=== PATIENT | male | born 1960 | race Hispanic/Latino ===

== ENCOUNTER → 2018-12-28 | Outpatient (CLI) | payer BC ==
--- NOTE | 2018-12-28 16:53 | Diagnostic Imaging Report ---
EXAM: Lumbar spine radiographs-3 views INDICATION: Low back pain. COMPARISON: None FINDINGS: BONES: The alignment is within normal limits. No acute displaced fractures. Vertebral body heights are preserved. DISCS: Mild degenerative disc changes at L5-S1. JOINTS: Mild facet degenerative changes at L5-S1. SOFT TISSUES: Unremarkable IMPRESSION: No acute lumbar spine radiographic findings. Mild degenerative disc and facet degenerative changes at L5-S1. Signed by: Dr. Joan Torres MD on 12/28/2018 4:49 PM
== END ==
LOC: RAD 15:46
PROVIDERS: ATTEND Family Medicine
DX: M54.5 Low back pain (principal)
CPT/HCPCS: 72100

== ENCOUNTER → 2019-01-14 | Outpatient (CLI) | payer BC ==
--- NOTE | 2019-01-14 17:10 | Diagnostic Imaging Report ---
Exam: Lumbar spine MRI without IV contrast History: Low back pain with bilateral tingling in feet. Comparison studies: Under spine x-ray 12/28/2018. Technique: Sagittal and axial T2 , sagittal T1 and IR, axial spin density oblique. Intravenous contrast: None Findings: Number of lumbar vertebral bodies: 5. Alignment: Normal lordosis. No scoliosis. Soft tissues: No T2 hyperintense inflammatory changes. Paraspinal muscles: No signal abnormalities. Well-preserved. No atrophic changes Lower thoracic cord: Normal in signal and morphology. The tip of the conus is at L1. Cauda equina: No masses. No arachnoiditis. Vertebrae: No compression fractures or infection. Incidental benign T1 hyperintense T11 vertebral body. Degenerative changes: L1-L2: Mildly degenerated disc with loss of disc height and loss of T2 disc signal. A 9 mm TV x 6 mm AP left central disc protrusion abuts but does not compress the left L2 nerve roots and results in only mild canal stenosis. Patent foramina. L2-L3: Disc height and disc signal are maintained. Patent canal and foramina. L3-L4: Disc height and disc signal are maintained. Minimal fatty replaced marrow endplate changes along the inferior L3 endplate. Symmetric bulging disc and mildly thickened ligamentum flavum result in minimal canal stenosis. Patent foramina. L4-L5: Mildly degenerated disc with loss of T2 disc signal. Asymmetric left disc bulge with small central disc protrusion and thickened ligamentum flavum result in mild canal stenosis, mild narrowing of the subarticular recesses and mild bilateral foraminal stenosis. L5-S1: Mild facet arthrosis. Patent canal and foramina. Included sacroiliac joints: No joint effusion or marrow edema. Incidental findings: Bilateral renal cysts, largest in the inferior pole of the right kidney measures 1.0 cm, largest in the superior pole of the left kidney measures 2.0 cm. IMPRESSION: Degenerative changes with mildly degenerated disks with disc protrusions and mild canal stenosis at L1-L2 and at L4-L5 and mild foraminal stenosis on the left at L4-L5. Signed by: Dr. Rikki Kemp M.D. on 01/14/2019 5:06 PM
== END ==
LOC: MRI 11:01
PROVIDERS: ATTEND Family Medicine
DX: M54.5 Low back pain (principal)
CPT/HCPCS: 72148

== ENCOUNTER → 2019-10-07 | Day surgery (SDC) | payer BC ==
[~2019-10-07] MED LIST: FENTANYL CITRATE/PF 100MCG/2 ML INJ ONE; LIDOCAINE HCL 2% LOCAL INJ 5 ML SDV VIAL INJ ONE; LISINOPRIL2.5 MG PO; MIDAZOLAM HCL 2 MG/2 ML VIAL ONE; PRAVASTATIN SOD10 MG PO; PROPOFOL IV EMULSION 10 MG/ML 20 ML VIAL ONE; SYNJARDY 12.5-1 EACH PO
--- OUTSIDE RECORDS SUMMARY | 2019-10-07 07:50 | XMS REPORT ---
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 Allergies, Adverse Reactions, Alerts This patient has no known allergies or adverse reactions. Medications This patient has no known medications. Results Test Description Test Time Test Comments Text Results Atomic Results Result Comments MRI SPINE LUMBAR WO 2019-01-14 16:51:00 [place] [address] Patient Name: CRISTINE BRADFORD MR #: [id number] : 1960 Age/Sex: 58/M Req #: [id number] [facility] Physician: Ordered by: PILLO QUIÑONES MD Report #: [id number] Location: MRI Room/Bed: Procedure: [id number] MRI/MRI SPINE LUMBAR WO Exam Date: Exam Time: REPORT STATUS: Signed Exam: Lumbar spine MRI without IV contrast History: Low back pain with bilateral tingling in feet. Comparison studies: Under spine x-ray 12/28/2018. Technique: Sagittal and axial T2 , sagittal T1 and IR, axial spin density oblique. Intravenous contrast: None Findings: Number of lumbar vertebral bodies: 5. Alignment: Normal lordosis. No scoliosis. Soft tissues: No T2 hyperintense inflammatory changes. Paraspinal muscles: No signal abnormalities. Well-preserved. No atrophic changes Lower thoracic cord: Normal in signal and morphology. The tip of the conus is at L1. Cauda equina: No masses. No arachnoiditis. Vertebrae: No compression fractures or infection. Incidental benign T1 hyperintense T11 vertebral body. Degenerative changes: L1-L2: Mildly degenerated disc with loss of disc height and loss of T2 disc signal. A 9 mm TV x 6 mm AP left central disc protrusion abuts but does not compress the left L2 nerve roots and results in only mild canal stenosis. Patent foramina. L2-L3: Disc height and disc signal are maintained. Patent canal and foramina. L3-L4: Disc height and disc signal are maintained. Minimal fatty replaced marrow endplate changes along the inferior L3 endplate. Symmetric bulging disc and mildly thickened ligamentum flavum result in minimal canal stenosis. Patent foramina. L4- L5: Mildly degenerated disc with loss of T2 disc signal. Asymmetric left disc bulge with small central disc protrusion and thickened ligamentum flavum result in mild canal stenosis, mild narrowing of the subarticular recesses and mild bilateral foraminal stenosis. L5-S1: Mild facet arthrosis. Patent canal and foramina. Included sacroiliac joints: No joint effusion or marrow edema. Incidental findings: Bilateral renal cysts, largest in the inferior pole of the right kidney measures 1.0 cm, largest in the superior pole of the left kidney measures 2.0 cm. IMPRESSION: Degenerative changes with mildly degenerated disks with disc protrusions and mild canal stenosis at L1-L2 and at L4-L5 and mild foraminal stenosis on the left at L4-L5. Signed by: Dr. Lexy Kemp M.D. on 01/14/2019 5:06 PM Dictated By: LEXY KEMP MD 05 Transcribed By: OSMAR on 01/14/191705 COPY TO: PILLO QUIÑONES MD SP LUMBAR AP LATERAL 2-3VWS 2018-12-28 16:29:00 [place] [address] Patient Name: CRISTINE BRADFORD MR #: [id number] : 1960 Age/Sex: 58/M Req #: [id number] Physician: Ordered by: PILLO QUIÑONES MD Report #: [id number] Location: [facility] Room/Bed: Procedure: [id number] DX/SP LUMBAR AP LATERAL 2-3VWS Exam Date: 12/28/18 Exam Time: 1600 REPORT STATUS: Signed EXAM: Lumbar spine radiographs-3 views INDICATION: Low back pain. COMPARISON: None FINDINGS: BONES: The alignment is within normal limits. No acute displaced fractures. Vertebral body heights are preserved. DISCS: Mild degenerative disc changes at L5- S1. JOINTS: Mild facet degenerative changes at L5-S1. SOFT TISSUES: Unremarkable IMPRESSION: No acute lumbar spine radiographic findings. Mild degenerative disc and facet degenerative changes at L5-S1. Signed by: Dr. Zane Blackmon MD on 12/28/2018 4:49 PM Dictated By: ZANE BLACKMON MD 48 Transcribed By: OSMAR on 12/28/181648 COPY TO: PILLO QUIÑONES MD
[2019-10-07 10:03] LABS: BASOPHILS % 0.5 % (0.0-1.0); HEMATOCRIT 48.5 % (38.2-49.6); HEMOGLOBIN 17.3 g/dL (14.0-18.0); LYMPHOCYTES # (AUTO) 1.3 (1.0-3.2); LYMPHOCYTES % 33.4 % (18.0-39.1); MEAN CORPUSCULAR HEMOGLOBIN 31.5 pg (28-32); MEAN CORPUSCULAR HGB CONC 35.7 g/dL (31-35); MEAN CORPUSCULAR VOLUME 88.2 fL (81-99); MONOCYTES # (AUTO) 0.4 (0.2-0.8); MONOCYTES % 10.8 % (4.4-11.3); NEUTROPHILS # (AUTO) 2.1 (2.1-6.9); PLATELET COUNT 177 x10e3/uL (140-360); RED CELL DISTRIBUTION WIDTH 13.1 % (11.7-14.4)
[2019-10-07 10:15] LABS: ANION GAP 13.9 mmol/L (8-16); BLOOD UREA NITROGEN 14 mg/dL (7-26); BUN/CREATININE RATIO 17 (6-25); CALCIUM 9.5 mg/dL (8.4-10.2); CARBON DIOXIDE 26 mmol/L (22-29); CHLORIDE 106 mmol/L (98-107); CREATININE, SERUM 0.82 mg/dL (0.72-1.25); EST GLOMERULAR FILTRATION RATE > 60 ML/MIN (60-); GLUCOSE 96 mg/dL (74-118); POTASSIUM 3.9 mmol/L (3.5-5.1); SODIUM 142 mmol/L (136-145)
[2019-10-07 14:55] VITALS: BP 133/83
--- NOTE | 2019-11-23 18:40 | Operative Report ---
DATE OF PROCEDURE: 10/07/2019 SURGEON: Viktor Stanton MD PREOPERATIVE DIAGNOSES: Abdominal pain and rectal bleeding. POSTOPERATIVE DIAGNOSES: Severe gastritis and sigmoid colon polyp. OPERATIONS PERFORMED: Gastroduodenoscopy with biopsies and colonoscopy with snare polypectomy. ANESTHESIA: MAC. COMPLICATIONS: None. ESTIMATED BLOOD LOSS: Minimal. DESCRIPTION OF PROCEDURE: With the patient lying in bed in the lateral position under good IV sedation, the flexible Olympus gastroscope was introduced into the back of the throat, and slowly and carefully advanced. The esophagus was found to be within normal limits. The esophagogastric junction was then entered and immediately a very diffuse punctate hemorrhagic gastritis consistent with Helicobacter was identified. These encompass the whole stomach was worse in the more distal stomach. No definite ulcerations were identified. Multiple biopsies were taken. The pylorus was then entered and the duodenum was inspected. The duodenum also shows some signs of duodenitis, but not as severe. The gastroscope was then slowly and carefully removed, again the previously described findings. The flexible Olympus colonoscope was introduced up the rectum and all the way up the sigmoid colon, descending colon, transverse colon, all way down into the cecal pouch. The positive findings were to the sigmoid colon, where the large polypoid pedunculated polyp was identified. The rest of the colonoscopy was otherwise within normal limits. A polypectomy was then performed with the hot snare and the entire polyp was removed and sent for pathological examination. Hemostasis was ascertained. The procedure was completed and the patient tolerated both procedures well and returned to the recovery room in stable condition. MD JOE Lugo/MODL /[id number]
== END | disposition home or self-care (01) ==
LOC: OR 07:47
PROVIDERS: ATTEND Surgery
DX: K29.50 Unspecified chronic gastritis without bleeding (principal); D12.5 Benign neoplasm of sigmoid colon; K29.80 Duodenitis without bleeding; B96.81 Helicobacter pylori [H. pylori] as the cause of diseases classified elsewhere; R06.83 Snoring; E11.9 Type 2 diabetes mellitus without complications; I10 Essential (primary) hypertension; I49.9 Cardiac arrhythmia, unspecified; E78.5 Hyperlipidemia, unspecified; F41.9 Anxiety disorder, unspecified; Z79.84 Long term (current) use of oral hypoglycemic drugs; Z87.442 Personal history of urinary calculi
CPT/HCPCS: 36415; 43239; 45385; 80048; 82948; 85025; 88305; 88312; 93005; J2001; J2250; J2704; J3010

== ENCOUNTER → 2020-05-02 | Day surgery (SDC) | payer BC, OTHER ==
[2020-04-27 14:15] LABS: BASOPHILS % 0.4 % (0.0-1.0); EOSINOPHILS # (AUTO) 0.1 (0.0-0.4); EOSINOPHILS % 1.9 % (0.0-6.0); HEMATOCRIT 43.1 % (38.2-49.6); HEMOGLOBIN 15.7 g/dL (14.0-18.0); LYMPHOCYTES # (AUTO) 2.3 (1.0-3.2); LYMPHOCYTES % 39.9 % (18.0-39.1); MEAN CORPUSCULAR HEMOGLOBIN 31.6 pg (28-32); MEAN CORPUSCULAR HGB CONC 36.4 g/dL (31-35); MEAN CORPUSCULAR VOLUME 86.7 fL (81-99); MONOCYTES # (AUTO) 0.5 (0.2-0.8); MONOCYTES % 9.5 % (4.4-11.3); NEUTROPHILS # (AUTO) 2.7 (2.1-6.9); NEUTROPHILS % 47.9 % (38.7-80.0); PLATELET COUNT 185 x10e3/uL (140-360); RED BLOOD COUNT 4.97 x10e6/uL (4.3-5.7); RED CELL DISTRIBUTION WIDTH 12.3 % (11.7-14.4)
--- NOTE | 2020-04-27 14:23 | Diagnostic Imaging Report ---
EXAMINATION: CHEST 2 VIEWS INDICATION: Pre-operative COMPARISON: None FINDINGS: LINES/TUBES:None LUNGS:The lungs are well-inflated. No focal consolidation or pulmonary edema. PLEURA:No pleural effusion or pneumothorax. MEDIASTINUM:The cardiomediastinal silhouette appears normal in size and shape. BONES/SOFT TISSUES:No acute osseous injury. ABDOMEN:No free air under the diaphragm. IMPRESSION: No focal pneumonia or pulmonary edema. Signed by: Silviano Rosa MD on 04/27/2020 2:19 PM
[2020-04-27 14:41] LABS: ANION GAP 15.7 mmol/L (8-16); BLOOD UREA NITROGEN 13 mg/dL (7-26); BUN/CREATININE RATIO 14 (6-25); CALCIUM 9.1 mg/dL (8.4-10.2); CARBON DIOXIDE 25 mmol/L (22-29); CHLORIDE 104 mmol/L (98-107); CREATININE, SERUM 0.95 mg/dL (0.72-1.25); EST GLOMERULAR FILTRATION RATE > 60 ML/MIN (60-); GLUCOSE 219 mg/dL (74-118); POTASSIUM 4.7 mmol/L (3.5-5.1); SODIUM 140 mmol/L (136-145)
[~2020-05-02] MED LIST changes: +PANTOPRAZOLE SO40 MG PO; +PRESERVISION T1 EACH PO
[2020-05-02 09:10] VITALS: BP 127/88
== END | disposition home or self-care (01) ==
LOC: OR 06:25
PROVIDERS: ATTEND Surgery
DX: D12.2 Benign neoplasm of ascending colon (principal); I10 Essential (primary) hypertension; E11.9 Type 2 diabetes mellitus without complications; Z01.810 Encounter for preprocedural cardiovascular examination; Z01.812 Encounter for preprocedural laboratory examination; Z01.818 Encounter for other preprocedural examination; Z11.59 Encounter for screening for other viral diseases
CPT/HCPCS: 36415 ×2; 45380; 71046; 80048; 82948; 85025; 93005; J2001; J2250; J2704; J3010; U0002